=== PATIENT | female | born 1965 | race Caucasian/White ===

== ENCOUNTER 2020-02-02 10:53 | Outpatient (CLI) | payer OTHER, SELFPAY ==
--- NOTE | ~2020-02-02 | XR_ITS ---
EXAMINATION: XR hand RT min 3V DATE: 02/02/2020 11:16 INDICATION: Right hand pain TECHNIQUE: Posteroanterior, oblique and lateral views of the right hand were obtained. COMPARISON: None. FINDINGS: Alignment is normal. No fracture. Minimal to mild polyarticular osteoarthritis at the radial aspect o f the carpus and at multiple, primarily distal, interphalangeal joints. No erosions to suggest an inf lammatory arthritis. Soft tissues are unremarkable. IMPRESSION: 1. 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 Reviewed, dictated and finalized at location B.
== END 2020-02-02 10:54 | disposition home or self-care (01) ==
PROVIDERS: PCP Family Medicine; Visit Provider Nurse Practitioner Family
DX: M79.643 Pain in unspecified hand (principal)
CPT/HCPCS: 73130

== ENCOUNTER 2020-04-07 09:45 | Outpatient (CLI) | payer OTHER, SELFPAY ==
--- NOTE | 2020-04-07 11:00 | NEURO_ITS ---
Impression: # Complains of right hand pain. # No Carpal Tunnel Syndrome. # No ulnar neuropathy. # Normal needle/EMG exam. # Clinical correlation recommended. Nerve Conduction Studies Anti Sensory Summary Table Stim Site NR Peak (ms) P-T Amp (?V) Site1 Site2 Delta-P (ms) Dist (cm) Griffin (m/s) Right Median Anti Sensory (2-3nd Digit) Wrist 2.3 74.3 Wrist 2-3nd Digit 2.3 14.0 61 Wrist 2.3 71.1 Wrist 2-3nd Digit 2.3 14.0 61 Right Radial Anti Sensory (Base 1st Digit) Wrist 2.0 28.3 Wrist Base 1st Digit 2.0 0.0 Right Ulnar Anti Sensory (5th Digit) Wrist 2.1 63.7 Wrist 5th Digit 2.1 14.0 67 Motor Summary Table Stim Site NR Onset (ms) O-P Amp (mV) Site1 Site2 Delta-0 (ms) Dist (cm) Griffin (m/s) Right Median Motor (Abd Poll Brev) Wrist 2.3 2.9 Elbow Wrist 3.8 24.0 63 Elbow 6.1 1.1 Right Ulnar Motor (Abd Dig Minimi) Wrist 2.0 7.7 A Elbow Wrist 3.9 26.0 67 A Elbow 5.9 3.9 F Wave Studies NR F-Lat (ms) L-R F-Lat (ms) Right Median (Mrkrs) (Abd Poll Brev) 24.09 Right Ulnar (Mrkrs) (Abd Dig Min) 23.56 EMG Side Muscle Nerve Root Ins Act Fibs Amp Dur Recrt Comment Right 1stDorInt Ulnar C8-T1 Nml Nml Nml Nml Nml Right Ext Indicis Radial (Post Int) C7-8 Nml Nml Nml Nml Nml Right Ext Digitorum Radial (Post Int) C7-8 Nml Nml Nml Nml Nml Right BrachioRad Radial C5-6 Nml Nml Nml Nml Nml Right PronatorTeres Median C6-7 Nml Nml Nml Nml Nml Right Abd Poll Brev Median C8-T1 Nml Nml Nml Nml Nml Right ABD Dig Min Ulnar C8-T1 Nml Nml Nml Nml Nml MTDD
== END 2020-04-07 09:46 | disposition home or self-care (01) ==
LOC: ANHNEURO 09:46
PROVIDERS: PCP Family Medicine; Visit Provider Nurse Practitioner Family
DX: M79.641 Pain in right hand (principal)
CPT/HCPCS: 95886; 95909

== ENCOUNTER 2020-10-21 08:27 | Outpatient (CLI) | payer OTHER, SELFPAY ==
--- NOTE | 2020-10-21 08:33 | EST_ITS ---
Patient Info Name: Karis Guzman Age: 55 years : 1965 Gender: Female Ht: 62 in Wt: 175 lbs BSA: 1.90 m2 HR: 65 bpm BP: 116 / 80 mmHg Heart Rhythm: Sinus Rhythm Exam Date: 10/21/2020 8:52 AM Exam Location: [facility] Patient Status: Outpatient Admit Date: 10/21/2020 Staff Ordering Physician: Jhonatan Juares DO Scaffold Worker: Shani Smith RDCS Attending Provider: Jhonatan Juares DO Exercise Technologist: Ana Maria Bronson CT Exercise Physician: Jhonatan Juares DO Exam Type: CA stress echo Study Info Indications R07.89 - Other chest pain Treadmill exercise stress echocardiogram is performed. Summary 1. 1. Negative Luis exercise stress test for ischemic ST changes by ECG criteria. 2. 2. Good functional capacity, achieving 9 METs of workload. 3. 3. Appropriate HR response to exercise. 4. 4. Appropriate HR recovery at 1 minute post exercise. 5. 5. Negative stress echocardiogram for ischemia by wall motion analysis. 6. 6. Patient informed of the above results. Stress Echo Findings Left Ventricle Appropriate increase in LV endocardial thickening with systole. Appropriate augmentation of contractility with systole. No wall motion abnormality. Left Ventricle Normal LV systolic function, no wall motion abnormality. Protocol: Luis Stress ECG Details Stage: REST Duration (min): 1 min : 14 sec Speed (mph): 0.0 Grade (%): 0 HR (bpm): 68 SBP (mmHg): 116 DBP (mmHg): 80 METS: --- Stage: REST Duration (min): 13 min : 55 sec Speed (mph): 0.0 Grade (%): 0 HR (bpm): 70 SBP (mmHg): 116 DBP (mmHg): 80 METS: --- Stage: STAGE 1 Duration (min): 1 min : 0 sec Speed (mph): 1.7 Grade (%): 10 HR (bpm): 107 SBP (mmHg): 116 DBP (mmHg): 80 METS: --- Stage: STAGE 1 Duration (min): 2 min : 0 sec Speed (mph): 1.7 Grade (%): 10 HR (bpm): 120 SBP (mmHg): 116 DBP (mmHg): 80 METS: --- Stage: STAGE 1 Duration (min): 3 min : 0 sec Speed (mph): 1.7 Grade (%): 10 HR (bpm): 123 SBP (mmHg): 147 DBP (mmHg): 61 METS: --- Stage: STAGE 2 Duration (min): 1 min : 0 sec Speed (mph): 2.5 Grade (%): 12 HR (bpm): 128 SBP (mmHg): 147 DBP (mmHg): 61 METS: --- Stage: STAGE 2 Duration (min): 2 min : 0 sec Speed (mph): 2.5 Grade (%): 12 HR (bpm): 135 SBP (mmHg): 137 DBP (mmHg): 66 METS: --- Stage: STAGE 2 Duration (min): 3 min : 0 sec Speed (mph): 2.5 Grade (%): 12 HR (bpm): 139 SBP (mmHg): 137 DBP (mmHg): 66 METS: --- Stage: STAGE 3 Duration (min): 1 min : 0 sec Speed (mph): 3.4 Grade (%): 14 HR (bpm): 145 SBP (mmHg): 163 DBP (mmHg): 83 METS: --- Stage: STAGE 3 Duration (min): 1 min : 29 sec Speed (mph): 0.0 Grade (%): 0 HR (bpm): 150 SBP (mmHg): 163 DBP (mmHg): 83 METS: --- Stage: RECOVERY Duration (min): 0 min : 30 sec Speed (mph):
== END 2020-10-21 08:28 | disposition home or self-care (01) ==
LOC: ANHCARD 08:28
PROVIDERS: PCP Family Medicine; Visit Provider Internal Medicine Cardiovascular Disease
DX: R07.9 Chest pain, unspecified (principal); I48.91 Unspecified atrial fibrillation
CPT/HCPCS: 93351

== ENCOUNTER 2021-01-09 00:43 | Day surgery (SDC) | payer OTHER, SELFPAY ==
[2020-12-28 12:36] VITALS: BMI 32.2
--- NOTE | 2021-01-06 17:52 | WPDANESEPP ---
Anes - Eval Pre Procedure Procedure: Operation Date: 01/09/21 10:45 Proposed Procedures p Esophagogastroduodenoscopy - Surinder Meyers MD Date/Time: 01/06/21 17:52 Pre Op Diagnosis: GERD, epigastric pain Patient Data Age: 55 Gender: F Height: 1.57 m Weight: 80 kg Allergies Allergy/AdvReac Type Severity Reaction Status Date / Time cefdinir Allergy Unknown Unknown Verified 12/28/20 12:46 Cephalosporins Allergy Unknown Unknown Verified 12/28/20 12:46 Penicillins Allergy Unknown Unknown Verified 12/28/20 12:46 Sulfa (Sulfonamide Allergy Unknown Unknown Verified 12/28/20 12:46 Antibiotics) Home Medications Medication Instructions Recorded Confirmed Type benazepril 10 mg tablet 10 mg PO DAILY #90 tablet 10/25/20 12/28/20 Rx galcanezumab-gnlm 120 mg/mL See Rx Instructions .ROUTE 11/22/20 12/28/20 Rx subcutaneous pen injector .COMPLEX #1 syringe lidocaine HCl 2 % mucosal solution 1 applic MUCOUS MEMBRANE BID PRN 12/13/20 12/28/20 Rx #100 ml rivaroxaban 20 mg tablet See Rx Instructions .ROUTE 12/15/20 12/28/20 Rx .COMPLEX #90 tablet fluticasone propionate 50 1 spray INTRANASAL DAILY #18.2 ml 12/26/20 12/28/20 Rx mcg/actuation nasal spray,suspension calcium carbonate-vit A and D 1 tablet PO DAILY 12/28/20 12/28/20 History [Oyster Calcium] metoprolol succinate 25 mg PO DAILY 12/28/20 12/28/20 History sumatriptan-naproxen 1 tablet PO PRN PRN 12/28/20 12/28/20 History vitamins A,C,O-oqbh-xtueaw [ICaps 1 tablet PO ONCE 12/28/20 12/28/20 History AREDS] pantoprazole 40 mg tablet,delayed 40 mg PO QAM 28 Days #28 tablet 01/01/21 Rx release doxycycline hyclate 100 mg tablet 100 mg PO BID #20 tablet 01/02/21 Rx Patient hx anesthesia problems: post op nausea/vomiting Family hx anesthesia problems: none PMFSH Past Medical History Medical History (Updated 01/06/21 @ 17:53 by Talon Thorpe DO) BMI 32.0-32.9,adult Essential hypertension GERD (gastroesophageal reflux disease) Mixed hyperlipidemia ELSY (obstructive sleep apnea) PAF (paroxysmal atrial fibrillation) Surgical History Surgical History (Updated 01/06/21 @ 17:53 by Talon Thorpe DO) History of x4 History of hysterectomy S/P cervical disc replacement Family History Family History Father Hypertension Family history of congestive heart failure Mother Cerebrovascular accident Family history of Alzheimer's disease Hypertension Family history of congestive heart failure Sibling Fibromyalgia Other Family history of cardiovascular disease Family history of malignant neoplasm Social History Social History Smoking packs per day: 0.5 Smoking cigarettes per day: 10.0 Years smoked: 30 Smoking pack-years: 15.00 Smoking status: Former smoker Tobacco type: cigarettes Second hand tobacco smoke exposure: No Alcohol intake: never Substance use: never Substance use type: does not use Living arrangements: with family 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
[2021-01-09 09:39] VITALS: BP 126/72; PULSE 67; RESP 18; TEMP 36.3; O2SAT 97
[2021-01-09] MEDS: LACTATED RINGERS 1,000 ML 150 ML IV CONT (09:42)
--- NOTE | 2021-01-09 09:58 | P.PNAN_ITS ---
Anes - Eval Final PreProcedure Day of Procedure 01/09/21 09:58 Patient weight: obese Heart: regular rate and rhythm Lungs: clear to auscultation Airway: Mallampati scale class II Neurological: alert and oriented Last oral intake: >/= 8 hours ASA classification: III Emergent: no Anesthetic plan: proceed Anesthesia type and monitoring: general GIVS and standard monitoring Informed Consent: The patient's anesthetic plan and its attendant risks and b enefits were discussed with the patient/family/POA. Questions were solicited and answers provided to the satisfaction of the patient/family/POA.
--- NOTE | 2021-01-09 10:09 | WPDGICN ---
Assessment and Plan Assessment and plan (1) Epigastric pain: Code(s): R10.13 - Epigastric pain Status: Acute Assessment and Plan: Patient has epigastric pain poorly responsive to PPI therapy. Plan is for EGD to assess more thoroughly. Additionally she complains of throat sores. These are not evident today. Plan to proceed with EGD and if necessary ENT evaluation subsequently may be beneficial. (2) Obesity: Code(s): E66.9 - Obesity, unspecified Status: Acute GI Consult Note Consult date/time: 01/09/21 10:09 HPI: Karis Guzman is a 55 year old female Presents for EGD. Patient reports that 10 years ago underwent endoscopy and was told she had healing ulcers. Patient apparently was never treated for this she does report pain in the epigastric area of the abdomen that improves on eating. It will improve and a eating almost any dietary intake. She states this occurs intermittently and is rather sharp in nature. she states that if she eats spicy or acidic foods that she will get mouth ulcerations. Patient denies any difficulty swallowing. Stating the food passes easily. She denies obvious regurgitation. Epigastric pain does not comment any specific time of the day or night. It does not wake her from sleeping. patient reports for 10 years she was on omeprazole. Initially 20 mg p.o. daily in for several years 40 mg p.o. daily. This is failed to alleviate her symptoms. She presents today for EGD to assess more thoroughly. Most recently she has tried pantoprazole 40 mg p.o. daily additionally with no change in symptoms. Patient presents today for EGD to assess this discomfort more thoroughly. Patient's family history is significant that her had esophageal cancer. Colonoscopy by Dr. Brown in 2019 was unremarkable for screening purposes. Review of Systems Review of Systems: All systems reviewed & are unremarkable except as noted in HPI and below PMFSH Past Medical History Medical History (Updated 01/06/21 @ 17:53 by Talon Thorpe DO) BMI 32.0-32.9,adult Essential hypertension GERD (gastroesophageal reflux disease) Mixed hyperlipidemia ELSY (obstructive sleep apnea) PAF (paroxysmal atrial fibrillation) Surgical History Surgical History (Updated 01/06/21 @ 17:53 by Talon Thorpe DO) History of x4 History of hysterectomy S/P cervical disc replacement Family History Family History Father Hypertension Family history of congestive heart failure Mother Cerebrovascular accident Family history of Alzheimer's disease Hypertension Family history of congestive heart failure Sibling Fibromyalgia Other Family history of cardiovascular disease Family history of malignant neoplasm Social History Social History Smoking packs per day: 0.5 Smoking cigarettes per day: 10.0 Years smoked: 30 Smoking pack-years: 15.00 Smoking status: Former smoker Tobacco type: cigarettes Second hand tobacco smoke exposure: No Alcohol intake: never Substance use: never Substance use type: does not use Living arrangements: with family 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
[2021-01-09 10:26] VITALS: BP 131/88; PULSE 77; RESP 12; O2SAT 97
[2021-01-09 10:36] VITALS: BP 132/76; PULSE 70; RESP 11; O2SAT 99
[2021-01-09 10:46] VITALS: BP 137/87; PULSE 69; RESP 32; O2SAT 100
== END 2021-01-09 11:15 | disposition home or self-care (01) ==
PROVIDERS: PCP Family Medicine; Visit Provider Internal Medicine Gastroenterology
PROC: 0DJ08ZZ Inspection of Upper Intestinal Tract, Via Natural or Artificial Opening Endoscopic (ICD-10-PCS; CPT 43235; principal; 2021-01-09 10:45)
DX: R10.13 Epigastric pain (principal); K21.9 Gastro-esophageal reflux disease without esophagitis; I48.0 Paroxysmal atrial fibrillation; I10 Essential (primary) hypertension; E78.2 Mixed hyperlipidemia; G47.33 Obstructive sleep apnea (adult) (pediatric); F17.210 Nicotine dependence, cigarettes, uncomplicated
CPT/HCPCS: 43239; 87081; J2704; J7120